=== PATIENT | female | born 1945 | race Caucasian/White ===

== ENCOUNTER 2017-07-28 12:52 | Emergency (ER) | payer OTHER ==
[~2017-07-28] VITALS: Ht 160 cm; Wt 59.6 kg
[2017-07-28] MEDS ORDERED: MOTRIN600 MG PO (16:04)
[2017-07-28 16:34] VITALS: BP 174/98
== END 2017-07-28 16:35 | disposition home or self-care (01) ==
LOC: EME 12:52
PROC: 2W3DX1Z Immobilization of Left Lower Arm using Splint (ICD-10-PCS; principal; 2017-07-28)
DX: S06.0X0A Concussion without loss of consciousness, initial encounter (principal); S52.592A Other fractures of lower end of left radius, initial encounter for closed fracture; M79.642 Pain in left hand; M25.512 Pain in left shoulder; W10.9XXA Fall (on) (from) unspecified stairs and steps, initial encounter; M48.02 Spinal stenosis, cervical region
CPT/HCPCS: 70450; 72125; 73030; 73130